=== PATIENT | male | born 1950 | race Caucasian/White ===

== ENCOUNTER 2016-12-15 03:01 | Observation (INO) | payer OTHER ==
[~2016-12-15] VITALS: Ht 185.4 cm; Wt 94.1 kg
[~2016-12-15 03:01] MED LIST: TRAMADOL HCL50 MG PO
[2016-12-15 04:03] LABS: HEMATOCRIT 43.6 % (38.0-50.0); MCH 30.3 PG (29.0-34.0); MCHC 33.9 G/DL (30.0-36.0); MCV 89.3 FL (86-99); MEAN PLAT.VOLUME 11.1 uM^3 (9.0-12.4); PLATELET COUNT 289 K/uL (156-360); RBC DIS.WIDTH-CV 12.4 % (11.8-14.6); RED BLOOD COUNT 4.88 M/uL (4.00-5.50); WHITE BLOOD COUNT 13.4 K/uL (4.1-10.2)
[2016-12-15 04:14] LABS: CHLORIDE 109 mEq/L (99-109); POTASSIUM 3.7 mEq/L (3.7-5.4); SODIUM 140 mEq/L (136-147)
[2016-12-15 04:23] LABS: GLUCOSE 140 mg/dL (70-99)
[2016-12-15 04:24] LABS: ANION GAP 16 MEQ/L (2-14)
[2016-12-15 04:25] LABS: TOTAL BILIRUBIN 0.8 mg/dL (0.0-1.0)
[2016-12-15 04:26] LABS: ALKALINE PHOSPHATASE 66 IU/L (3-129)
[2016-12-15 04:27] LABS: GFR ESTIMATE (CALCULATED) > 59 mL/min/
[2016-12-15 04:28] LABS: UREA NITROGEN (BUN) 15 mg/dL (9-23)
[2016-12-15 04:30] LABS: LIPASE 26 U/L (1.0-51.0)
[2016-12-15 04:56] LABS: ADD MIUA? YES; BILIRUBIN NEGATIVE; BLOOD LARGE; COLOR YELLOW ((YELLOW)); GLUCOSE (STRIP) NEGATIVE; KETONES 80; LEUKOCYTES NEGATIVE; NITRITE NEGATIVE; PROTEIN (STRIP) 30; SPECIFIC GRAVITY 1.019 (1.000-1.030); UROBILINOGEN 0.2 MG/DL (0.2-1.0)
[2016-12-15 05:01] LABS: BACTERIA NONE SEEN /HPF; EPITHELIAL CELLS NONE SEEN /HPF; MUCUS TRACE /LPF; RED BLOOD CELLS TNTC /HPF (0-5); UCUL ADDED? NO; WHITE BLOOD CELLS 0-5 /HPF (0-5)
[2016-12-15 08:37] VITALS: BP 139/71
[2016-12-15 11:22] VITALS: BP 135/68
[2016-12-15 16:20] VITALS: BP 121/62
[2016-12-15 19:16] VITALS: BP 133/60
[2016-12-16 00:25] VITALS: BP 128/70
[2016-12-16 06:22] LABS: ANION GAP 6 MEQ/L (2-14); CHLORIDE 108 MEQ/L (99-109); GFR ESTIMATE (CALCULATED) > 59 mL/min/; POTASSIUM 4.2 MEQ/L (3.7-5.4); SAMPLE HEMOLYSIS CHECK 0; SAMPLE ICTERIC CHECK 0; SAMPLE LIPEMIA CHECK 0; SODIUM 142 MEQ/L (136-147); UREA NITROGEN (BUN) 12 mg/dL (9-23)
[2016-12-16 06:26] LABS: HEMATOCRIT 38.1 % (38.0-50.0); MCH 30.7 PG (29.0-34.0); MCHC 33.1 G/DL (30.0-36.0); MCV 92.7 FL (86-99); MEAN PLAT.VOLUME 11.1 uM^3 (9.0-12.4); PLATELET COUNT 229 K/uL (156-360); RBC DIS.WIDTH-CV 13.2 % (11.8-14.6); RBC DIS.WIDTH-SD 44.8 % (39-53); RED BLOOD COUNT 4.11 M/uL (4.00-5.50)
[2016-12-16 06:33] LABS: WHITE BLOOD COUNT 8.7 K/uL (4.1-10.2)
[2016-12-16 06:40] LABS: GLUCOSE 100 mg/dL (70-99)
[2016-12-16 09:05] VITALS: BP 142/73
[2016-12-16] MEDS ORDERED: TAMSULOSIN HCL0.4 MG PO (09:41)
[2016-12-16] MEDS ORDERED: CEFTIN500 MG PO (09:41)
[2016-12-16] MEDS ORDERED: PERCOCET 5/31 TABLET PO (09:41)
== END 2016-12-16 10:40 | disposition home or self-care (01) ==
LOC: EME 03:01 → EDOF 07:45 → 5WEST 07:45 → EDOF 07:45 → 5WEST 08:23
PROVIDERS: Internal Medicine
DX: N13.2 Hydronephrosis with renal and ureteral calculous obstruction (principal); I25.10 Atherosclerotic heart disease of native coronary artery without angina pectoris; Z95.5 Presence of coronary angioplasty implant and graft; I10 Essential (primary) hypertension; E78.5 Hyperlipidemia, unspecified; G47.30 Sleep apnea, unspecified; Z87.891 Personal history of nicotine dependence; Z85.820 Personal history of malignant melanoma of skin
CPT/HCPCS: 74176; 80048; 80053; 81003; 83690; 85027; 99281; 99284; G0378; J0696; J1170; J1885; J2270; J2405; J3010; J7030; J7050